=== PATIENT | female | born 1985 | race Caucasian/White ===

== ENCOUNTER 2016-04-14 18:58 | Emergency (ER) | payer SELFPAY ==
[2016-04-14] MEDS ORDERED: Fluconazole 100 MG TAB ONE (19:56)
--- NOTE | 2016-04-14 20:17 | ERRECORD ---
[facility] EMERGENCY RECORD HPI RASH (19:32 WMEI) CHIEF COMPLAINT: Patient presents for evaluation of pruritis, Patient presents for evaluation of rash. HISTORIAN: History provided by patient, X 2 WKS STARTED SMALL SPOT ON CHEST SPREAD TO LOWER EXTR AND BACK. LOCATION: Symptoms are generalized. QUALITY: Rash described as flat, IRREGULAR BORDER SOME WITH ECZEMATOUS CHANGES. TIME COURSE: Gradual onset of symptoms, 2, weeks ago, Symptoms are worsening. ASSOCIATED WITH: No associated fever, No associated pain. EXACERBATED BY: Patient's condition exacerbated by nothing. RELIEVED BY: Patient's condition relieved by nothing. ROS (19:34 WMEI) CONSTITUTIONAL: Historian denies chills, denies fever. EYES: Historian denies eye pain, denies eye discharge. ENT: Historian denies rhinorrhea, denies sore throat. CARDIOVASCULAR: Historian denies chest pain, no radiation. RESPIRATORY: Historian denies cough, denies shortness of breath. GI: Historian denies abdominal pain, denies nausea, denies vomiting. GENITOURINARY FEMALE: Historian denies frequency, denies urgency. MUSCULOSKELETAL: Historian denies joint stiffness, denies joint swelling. SKIN: Historian reports skin changes, reports skin lesions. NUMEROUS DISCRETE LESIONS WITH IRREGULAR BORDERS. NEUROLOGIC: Historian denies mental status changes, denies paresthesias. ALLERGIC/IMMUNOLOGIC: Historian denies eczema, denies environmental allergies. PSYCHIATRIC: Historian denies alcohol abuse, denies anxiety, denies depression, denies drug abuse. PAST MEDICAL HISTORY (19:09 MMAN) MEDICAL HISTORY: Flu vaccine not up to date, Tetanus immunization up to date, Date of immunization: 2009, Pneumococcal vaccine not up to date, Past medical history includes gastrointestinal disease, gallstones. Verified 04/14/2016. FEMALE SURGICAL HISTORY: tubal, left ankle surgery, Surgical history of cholecystectomy 2007, Verified 04/14/2016. PSYCHIATRIC HISTORY: No previous psychiatric history. Verified 04/14/2016. SOCIAL HISTORY: Patient drinks socially, twice a month, Patient denies drug use, Patient currently uses tobacco, smokes cigarettes, daily, Patient smokes 1 pack per day. Verified 04/14/2016. FAMILY HISTORY: Paternal history of diabetes:, Paternal history of malignancy:, Maternal history of cardiac disease. &a-1R&a+25V*p+0X*i6725T*c202B*c15G*c2P*p-0X&a-25V&a+1R Name: Kayleen De Los Santos : 1985 F30 MedRec: [id number] AcctNum: [id number] Prepared: Kinjal Apr 14, 2016 22:55 by Interface Page 1 of 3 pMD [facility] EMERGENCY RECORD KNOWN ALLERGIES traMADol: Severity: Moderate, Source: Patient, - itching and spasms CURRENT MEDICATIONS No recorded medications VITAL SIGNS (19:06 MMAN) VITAL SIGNS: BP: 121/91, Pulse: 97, Resp: 18, Temp: 98.5 (Oral), Pain: 0, O2 sat: 99 on Room Air, Time: 04/14/2016 19:06. PHYSICAL EXAM (19:36 WMEI) CONSTITUTIONAL: Vital signs reviewed, Patient appears non toxic, Patient alert and oriented to person, place and time. HEAD: Head exam included findings of head atraumatic, normocephalic. EYES: Conjunctiva normal, Sclera normal. ENT: Ear exam normal, Nose exam normal, Pharynx exam normal. NECK: Neck exam included findings of normal range of motion, Trachea midline. RESPIRATORY CHEST: Breath sounds clear, Chest exam included findings of chest movement symmetrical. CARDIOVASCULAR: Cardiovascular exam included findings of heart rate regular rate and rhythm, Heart sounds normal. ABDOMEN FEMALE: Abdominal exam included findings of abdomen nontender, Bowel sounds normal. BACK: Back exam normal, Back exam included findings of normal inspection, range of motion normal. UPPER EXTREMITY: Upper extremity exam included findings of inspection normal, Range of motion normal, Motor strength normal. LOWER EXTREMITY: Lower extremity exam included findings of inspection normal, Motor strength normal. NEURO: [place] coma scale 15, Neuro exam findings include patient oriented to person, place and time. SKIN: NUMEROUS IRREGULQAR MACULAR SLIGHTLY SCALY LESIONS CHEST BACK PROXIMAL EXTREMITLOWER EXTR. LYMPHATIC: Lymphatic exam normal. PSYCHIATRIC: Psychiatric exam included findings of patient oriented to person place and time, Normal affect, Judgment normal, Insight normal. MEDICATION ADMINISTRATION SUMMARY Drug Name: fluconazole, Dose Ordered: 300 mg, Route: Oral, Status: Given, Time: 20:00 04/14/2016, Detailed record available in Medication Service section. PROBLEM LIST No recorded problems &a-1R&a+25V*p+0X*l3059R*c202B*c15G*c2P*p-0X&a-25V&a+1R Name: Kayleen De Los Santos : 1985 F30 MedRec: [id number] AcctNum: [id number] Prepared: Kinjal Apr 14, 2016 22:55 by Interface Page 2 of 3 pMD [facility] EMERGENCY RECORD DIAGNOSIS (19:47 WMEI) FINAL: PRIMARY: TINEA VERSICOLOR. PRESCRIPTION (19:46 WMEI) fluconazole: TABLET : 150 mg : ORAL : Quantity: 300 Unit: mg Route: ORAL Schedule: once a week Dispense: 4 Unit: tab(s) May substitute. Refills: No Refills . NOTES: No refills. DISPOSITION PATIENT: Disposition Type: Discharge, Disposition: *Discharge Home. (19:47 WMEI) Patient left the department. (20:04 DAMI) Velez: MMAN=MILAGROS Ramirez Matthew WMEI=DO Canseco William &a-1R&a+25V*p+0X*l4305H*c202B*c15G*c2P*p-0X&a-25V&a+1R Name: Kayleen De Los Santos : 1985 F30 MedRec: [id number] AcctNum: [id number] Prepared: Kinjal Apr 14, 2016 22:55 by Interface Page 3 of 3 pMD MTDD
--- NOTE | 2016-04-14 20:22 | PICIS ---
[facility] EMERGENCY RECORD TRIAGE (MonApr 14, 2016 19:07 MMAN) TRIAGE NOTES: Rash that started 1 week ago to left chest and has spread to torso and lower back. (MonApr 14, 2016 19:07 MMAN) PATIENT: NAME: Kayleen De Los Santos, AGE: 30, GENDER: female, : Sat 1985, TIME OF GREET: MonApr 14, 2016 18:58, PREFERRED LANGUAGE: [place], ETHNICITY: Not or , ECODE BILLING MAP: [facility], SSN: [id number], Zip Code: [address], KG WEIGHT: [phone], PHONE: , , , PERSON ID: [id number], PAYMENT: [employer] Self Pay, PCP: NONE. (MonApr 14, 2016 19:07 MMAN) COMPLAINT: Rash. (MonApr 14, 2016 19:07 MMAN) ADMISSION: URGENCY: 5 Fast Track, ADMISSION SOURCE: Home, TRANSPORT: CAR, BED: TRIAGE. (MonApr 14, 2016 19:07 MMAN) SIRS SCORING: Heart Rate 55-109 (0), Temp range 96.8-101.1 (0), respiratory rate 12-24 (0), Mental Status altered: no (0), Infection or Suspected Infection: No. (19:09 MMAN) TRIAGE SCREENING: Patient denies suicidal ideation, Patient denies presence of domestic violence. (19:09 MMAN) LMP: Last menstrual period: 04/14/2016. (19:09 MMAN) TREATMENTS IN PROGRESS: Medications Given, NONE. (19:09 MMAN) PROVIDERS: TRIAGE NURSE: Matt Ramirez RN. (MonApr 14, 2016 19:07 MMAN) VITAL SIGNS: BP 121/91, Pulse 97, Resp 18, Temp 98.5, (Oral), Pain 0, O2 Sat 99, on Room Air, Time 04/14/2016 19:06. (19:06 MMAN) PREVIOUS VISIT ALLERGIES: traMADol. (MonApr 14, 2016 19:07 MMAN) traMADol. (19:09 MMAN) KNOWN ALLERGIES traMADol: Severity: Moderate, Source: Patient, - itching and spasms CURRENT MEDICATIONS No recorded medications VITAL SIGNS (19:06 MMAN) VITAL SIGNS: BP: 121/91, Pulse: 97, Resp: 18, Temp: 98.5 (Oral), Pain: 0, O2 sat: 99 on Room Air, Time: 04/14/2016 19:06. NURSING ASSESSMENT: SKIN (19:11 MMAN) CONSTITUTIONAL: Patient arrives ambulatory, Gait steady, History obtained from patient, Patient appears comfortable, Patient cooperative, Patient alert, Oriented to person, place and time, Skin warm, Skin dry, Skin normal in color, Mucous membranes pink, Mucous membranes moist, Patient is well-groomed, Patient complains of Rash, Rash that started 1 week ago to left chest and has spread to torso and lower back. SKIN: Skin assessment findings include skin warm, Skin dry, Skin normal in color, Inspection findings include rash, red, macular, itchy, without drainage, &a-1R&a+25V*p+0X*r8762Y*c202B*c15G*c2P*p-0X&a-25V&a+1R Name: Kayleen De Los Santos : 1985 F30 MedRec: [id number] AcctNum: [id number] Prepared: Kinjal Apr 14, 2016 23:01 by Interface Page 1 of 5 pMD [facility] EMERGENCY RECORD to left chest, abdomen, lower back. SAFETY: Side rails up, Cart/Stretcher in lowest position, Family at bedside, Call light within reach, Hospital ID band on. NURSING PROCEDURE: DISCHARGE NOTE (20:04 MMAN) DISCHARGE: Patient discharged to home, ambulating without assistance, family driving, accompanied by //partner, Summary of Care printed/ provided, Transition record given to patient, Discharge instructions given to patient, Simple or moderate discharge teaching performed, Prescriptions given and instructions on side effects given, Name of prescription(s) given: fluconazole, Medication reconciliation form given, Above person(s) verbalized understanding of discharge instructions and follow-up care. BELONGINGS: Belongings and valuables with patient at time of discharge include:, Belongings remain with patient, Valuables remain with patient. SAFETY: Side rails up, Cart/Stretcher in lowest position, Family at bedside, Call light within reach, Hospital ID band on. ORDER DETAILS Order Name: BLOOD GLUCOSE MONITOR, Status: Done, Time: 19:44 04/14/2016, User: AADK, - Ordered for: DO Canseco William, - Entered by: DO Canseco William - [facility] Apr 14, 2016 19:42, - Quantity: 1. MEDICATION ADMINISTRATION SUMMARY Drug Name: fluconazole, Dose Ordered: 300 mg, Route: Oral, Status: Given, Time: 20:00 04/14/2016, Detailed record available in Medication Service section. MEDICATION SERVICE (20:00 [facility]) fluconazole: Order: fluconazole - Dose: 300 mg : Oral Schedule: Now Ordered by: Jethro Canseco DO Entered by: Jethro Canseco DO [facility] Apr 14, 2016 19:47 Documented as given by: Matt Ramirez RN [facility] Apr 14, 2016 20:00 Patient, Medication, Dose, Route and Time verified prior to administration. Amount given: 300 mg, Site: Medication administered P.O., Correct patient, time, route, dose and medication confirmed prior to administration, Patient advised of actions and side-effects prior to administration, Allergies confirmed and medications reviewed prior to administration, Patient in position of comfort, Side rails up, Cart in lowest position, Family at bedside, Call light in reach. HPI RASH (19:32 WMEI) CHIEF COMPLAINT: Patient presents for evaluation of &a-1R&a+25V*p+0X*h8744Q*c202B*c15G*c2P*p-0X&a-25V&a+1R Name: Kayleen De Los Santos : 1985 F30 MedRec: [id number] AcctNum: [id number] Prepared: Kinjal Apr 14, 2016 23:01 by Interface Page 2 of 5 pMD [facility] EMERGENCY RECORD pruritis, Patient presents for evaluation of rash. HISTORIAN: History provided by patient, X 2 WKS STARTED SMALL SPOT ON CHEST SPREAD TO LOWER EXTR AND BACK. LOCATION: Symptoms are generalized. QUALITY: Rash described as flat, IRREGULAR BORDER SOME WITH ECZEMATOUS CHANGES. TIME COURSE: Gradual onset of symptoms, 2, weeks ago, Symptoms are worsening. ASSOCIATED WITH: No associated fever, No associated pain. EXACERBATED BY: Patient's condition exacerbated by nothing. RELIEVED BY: Patient's condition relieved by nothing. ROS (19:34 WMEI) CONSTITUTIONAL: Historian denies chills, denies fever. EYES: Historian denies eye pain, denies eye discharge. ENT: Historian denies rhinorrhea, denies sore throat. CARDIOVASCULAR: Historian denies chest pain, no radiation. RESPIRATORY: Historian denies cough, denies shortness of breath. GI: Historian denies abdominal pain, denies nausea, denies vomiting. GENITOURINARY FEMALE: Historian denies frequency, denies urgency. MUSCULOSKELETAL: Historian denies joint stiffness, denies joint swelling. SKIN: Historian reports skin changes, reports skin lesions. NUMEROUS DISCRETE LESIONS WITH IRREGULAR BORDERS. NEUROLOGIC: Historian denies mental status changes, denies paresthesias. ALLERGIC/IMMUNOLOGIC: Historian denies eczema, denies environmental allergies. PSYCHIATRIC: Historian denies alcohol abuse, denies anxiety, denies depression, denies drug abuse. PAST MEDICAL HISTORY (19:09 MMAN) MEDICAL HISTORY: Flu vaccine not up to date, Tetanus immunization up to date, Date of immunization: 2009, Pneumococcal vaccine not up to date, Past medical history includes gastrointestinal disease, gallstones. Verified 04/14/2016. FEMALE SURGICAL HISTORY: tubal, left ankle surgery, Surgical history of cholecystectomy 2007, Verified 04/14/2016. PSYCHIATRIC HISTORY: No previous psychiatric history. Verified 04/14/2016. SOCIAL HISTORY: Patient drinks socially, twice a month, Patient denies drug use, Patient currently uses tobacco, smokes cigarettes, daily, Patient smokes 1 pack per day. Verified 04/14/2016. FAMILY HISTORY: Paternal history of diabetes:, Paternal history of malignancy:, Maternal history of cardiac disease. PHYSICAL EXAM (19:36 WMEI) &a-1R&a+25V*p+0X*q5675T*c202B*c15G*c2P*p-0X&a-25V&a+1R Name: Kayleen De Los Santos : 1985 F30 MedRec: [id number] AcctNum: [id number] Prepared: [facility] Apr 14, 2016 23:01 by Interface Page 3 of 5 pMD [facility] EMERGENCY RECORD CONSTITUTIONAL: Vital signs reviewed, Patient appears non toxic, Patient alert and oriented to person, place and time. HEAD: Head exam included findings of head atraumatic, normocephalic. EYES: Conjunctiva normal, Sclera normal. ENT: Ear exam normal, Nose exam normal, Pharynx exam normal. NECK: Neck exam included findings of normal range of motion, Trachea midline. RESPIRATORY CHEST: Breath sounds clear, Chest exam included findings of chest movement symmetrical. CARDIOVASCULAR: Cardiovascular exam included findings of heart rate regular rate and rhythm, Heart sounds normal. ABDOMEN FEMALE: Abdominal exam included findings of abdomen nontender, Bowel sounds normal. BACK: Back exam normal, Back exam included findings of normal inspection, range of motion normal. UPPER EXTREMITY: Upper extremity exam included findings of inspection normal, Range of motion normal, Motor strength normal. LOWER EXTREMITY: Lower extremity exam included findings of inspection normal, Motor strength normal. NEURO: [place] coma scale 15, Neuro exam findings include patient oriented to person, place and time. SKIN: NUMEROUS IRREGULQAR MACULAR SLIGHTLY SCALY LESIONS CHEST BACK PROXIMAL EXTREMITLOWER EXTR. LYMPHATIC: Lymphatic exam normal. PSYCHIATRIC: Psychiatric exam included findings of patient oriented to person place and time, Normal affect, Judgment normal, Insight normal. EVENTS TRANSFER: Triage to Emergency Triage. (MonApr 14, 2016 19:07 MMAN) Emergency Triage to Emergency Room -04. (19:08 MMAN) Removed from Emergency Emergency Room -04. (20:04 MMAN) PROBLEM LIST No recorded problems DIAGNOSIS (19:47 WMEI) FINAL: PRIMARY: TINEA VERSICOLOR. DISPOSITION PATIENT: Disposition Type: Discharge, Disposition: *Discharge Home. (19:47 WMEI) Patient left the department. (20:04 MMAN) INSTRUCTION (19:47 WMEI) DISCHARGE: TINEA VERSICOLOR. SPECIAL: Follow-up with your PCP. &a-1R&a+25V*p+0X*m6674K*c202B*c15G*c2P*p-0X&a-25V&a+1R Name: Kayleen De Los Santos : 1985 F30 MedRec: [id number] AcctNum: [id number] Prepared: MonApr 14, 2016 23:01 by Interface Page 4 of 5 pMD [facility] EMERGENCY RECORD PRESCRIPTION (19:46 WMEI) fluconazole: TABLET : 150 mg : ORAL : Quantity: 300 Unit: mg Route: ORAL Schedule: once a week Dispense: 4 Unit: tab(s) May substitute. Refills: No Refills . NOTES: No refills. IMAGING (21:19 AADK) *DISCHARGE INSTRUCTIONS RECEIPT: Image captured from scanner. *SUPPLY CHARGE SHEET: Image captured from scanner. ADMIN (22:49 WMEI) DIGITAL SIGNATURE: DO Canseco William. Velez: AADK=MILAGROS Duffy, Alicia MMAN=MILAGROS Ramirez, Matt WMEI=DO Canseco William &a-1R&a+25V*p+0X*z5340W*c202B*c15G*c2P*p-0X&a-25V&a+1R Name: Kayleen De Los Santos : 1985 F30 MedRec: [id number] AcctNum: [id number] Prepared: Kinjal Apr 14, 2016 23:01 by Interface Page 5 of 5 pMD MTDD
== END 2016-04-14 20:05 | disposition home or self-care (01) ==
LOC: BURERS 18:58
DX: B36.0 Pityriasis versicolor (principal); F17.210 Nicotine dependence, cigarettes, uncomplicated
CPT/HCPCS: 36416; 99283

== ENCOUNTER 2017-03-04 09:34 | Emergency (ER) | payer SELFPAY | END 2017-03-04 10:00 | LOC: BURERS 09:34 | DX: J06.9 Acute upper respiratory infection, unspecified (principal); F17.210 Nicotine dependence, cigarettes, uncomplicated | CPT/HCPCS: 99406 ==

== ENCOUNTER 2017-07-30 01:25 | Emergency (ER) | payer SELFPAY ==
[2017-07-30] MEDS ORDERED: HYDROcodone/Acetaminophen 5/325 mg Tablet ONE (01:59)
== END 2017-07-30 02:19 | disposition home or self-care (01) ==
LOC: BURERS 01:25
DX: G50.0 Trigeminal neuralgia (principal); K03.81 Cracked tooth; F17.210 Nicotine dependence, cigarettes, uncomplicated; Z79.1 Long term (current) use of non-steroidal anti-inflammatories (NSAID)
CPT/HCPCS: 99283

== ENCOUNTER 2018-03-02 10:15 | Emergency (ER) | payer SELFPAY | END 2018-03-02 11:43 | disposition home or self-care (01) | LOC: BURERS 10:15 | DX: L72.3 Sebaceous cyst (principal); F17.210 Nicotine dependence, cigarettes, uncomplicated | CPT/HCPCS: 56405; 87070; 87205 ==

== ENCOUNTER 2018-05-15 14:24 | Emergency (ER) | payer SELFPAY ==
[2018-05-15] MEDS ORDERED: HYDROcodone/Acetaminophen 10/325 mg Tablet ONE (15:02)
[2018-05-15] MEDS ORDERED: AMOXicillin 250 MG CAP ONE (15:02)
== END 2018-05-15 15:08 | disposition home or self-care (01) ==
LOC: BURERS 14:24
DX: K02.9 Dental caries, unspecified (principal); F17.210 Nicotine dependence, cigarettes, uncomplicated
CPT/HCPCS: 99283

== ENCOUNTER 2019-04-28 09:50 | Emergency (ER) | payer SELFPAY ==
[2019-04-28] MEDS ORDERED: HYDROcodone/Acetaminophen 5/325 mg Tablet ONE (10:23)
[2019-04-28] MEDS ORDERED: Ibuprofen 200 MG TAB ONE (10:23)
[2019-04-28] MEDS ORDERED: predniSONE 20 MG TAB ONE (10:23)
== END 2019-04-28 10:44 | disposition home or self-care (01) ==
LOC: BURERS 09:50
DX: M54.5 Low back pain (principal); F17.210 Nicotine dependence, cigarettes, uncomplicated
CPT/HCPCS: 99283; J7512

== ENCOUNTER 2019-07-08 10:16 | Emergency (ER) | payer SELFPAY ==
[2019-07-08] MEDS ORDERED: Cyclobenzaprine 10 MG TAB ONE (10:38)
[2019-07-08] MEDS ORDERED: Ketorolac Tromethamine 60 MG/2 ML VIAL ONE (10:39)
== END 2019-07-08 10:59 | disposition home or self-care (01) ==
LOC: BURERS 10:16
DX: M54.5 Low back pain (principal); F17.210 Nicotine dependence, cigarettes, uncomplicated
CPT/HCPCS: 96372; 99283; J1885

== ENCOUNTER 2019-07-25 09:34 | Emergency (ER) | payer SELFPAY ==
[2019-07-25] MEDS ORDERED: HYDROcodone/Acetaminophen 10/325 mg Tablet ONE (09:49)
[2019-07-25] MEDS ORDERED: Ibuprofen 800 MG TAB ONE (09:50)
--- NOTE | 2019-07-25 15:39 | RAD ---
RIGHT KNEE FOUR VIEWS: 07/25/19 Comparison is made with a 08/19/23 study. No acute fracture was seen. The joint surfaces are smooth. T here may be a small amount of joint fluid. IMPRESSION: No acute bony finding. POS: HOME
== END 2019-07-25 10:22 | disposition home or self-care (01) ==
LOC: BURERS 09:34
DX: S83.004A Unspecified dislocation of right patella, initial encounter (principal); F17.210 Nicotine dependence, cigarettes, uncomplicated; X50.1XXA Overexertion from prolonged static or awkward postures, initial encounter

== ENCOUNTER 2019-10-15 11:29 | Emergency (ER) | payer SELFPAY | END 2019-10-15 12:01 | disposition home or self-care (01) | LOC: BURERS 11:29 | DX: S83.91XA Sprain of unspecified site of right knee, initial encounter (principal); F17.210 Nicotine dependence, cigarettes, uncomplicated; X58.XXXA Exposure to other specified factors, initial encounter | CPT/HCPCS: 99283 ==

== ENCOUNTER 2020-01-17 08:32 | Emergency (ER) | payer SELFPAY ==
[2020-01-17] MEDS ORDERED: Adenosine 6 MG/2 ML VIAL ONE (08:50)
[2020-01-17 09:12] LABS: #Basophils 0.1 thou/uL (0.0-0.2); #Eosinphils 0.2 thou/uL (0.0-0.7); #Lymphocytes 2.3 thou/uL (1.20-3.40); #Monocytes 0.5 thou/uL (0.11-0.59); #Neutrophils 6.4 thou/uL (1.40-6.50); %Basophils 1.1 % (0.0-1.0); %Eosinophils 2.1 % (0.0-10.0); %Lymphocytes 24.4 % (21.0-51.0); %Monocytes 5.4 % (0.0-10.0); Hemoglobin 14.5 g/dL (12.0-16.0); Mean Corpuscular Volume 87.3 fL (78.0-98.0); Mean Platelet Volume 9.5 fL (7.4-10.4); Platelet Count 243 thou/uL (130-400); RBC Distribution Width 12.1 % (11.5-14.5); Red Blood Cell (RBC) Count 5.19 mill/uL (4.20-5.40); White Blood Cell (WBC) Count 9.6 thou/uL (4.8-10.8)
[2020-01-17 09:25] LABS: ALT (SGPT) 30 U/L (8-55); AST (SGOT) 18 U/L (5-34); Albumin 4.1 g/dL (3.5-5.0); Alkaline Phosphatase 77 U/L (40-110); Anion Gap 16 mmol/L (10-20); BUN (Urea Nitrogen) 14 mg/dL (7.0-18.7); Bilirubin, Total 0.8 mg/dL (0.2-1.2); Calc. Creatinine Clearance 0 mL/min (70-130); Calcium 9.2 mg/dL (7.8-10.44); Carbon Dioxide 21 mmol/L (22-29); Chloride 107 mmol/L (98-107); Estimated GFR-MDRD 86; Globulin 2.6 g/dL (2.4-3.5); Glucose 119 mg/dL (70-105); Potassium 3.9 mmol/L (3.5-5.1); Protein, Total 6.7 g/dL (6.0-8.3); Sodium 140 mmol/L (136-145)
--- NOTE | 2020-01-17 17:55 | RAD ---
PORTABLE CHEST: 01/17/20 An AP portable film at 0918 is compared with a 03/10/08 study. The heart is normal in size and the lungs are clear except for some streaking near the cardiac apex. This seems more likely scarring or atelectasis than an acute infiltrate. The right lung is certainly clear. There is no congestion or pleural effusion. The mediastinum appears normal. IMPRESSION: No acute thoracic finding. POS: HOME
== END 2020-01-17 10:48 | disposition home or self-care (01) ==
LOC: BURERS 08:32
DX: I47.1 Supraventricular tachycardia (principal); F17.210 Nicotine dependence, cigarettes, uncomplicated
CPT/HCPCS: 71045; 80053; 84484; 85025; 93005; 96374; J0153

== ENCOUNTER 2021-08-07 16:25 | Emergency (ER) | payer OTHER, SELFPAY | END 2021-08-07 16:55 | disposition home or self-care (01) | LOC: BURERS 16:25 | DX: R60.9 Edema, unspecified (principal); F17.210 Nicotine dependence, cigarettes, uncomplicated | CPT/HCPCS: 99283 ==

== ENCOUNTER 2022-01-15 14:57 | Emergency (ER) | payer OTHER ==
[2022-01-15] MEDS ORDERED: Ibuprofen 800 MG TAB ONE (16:17)
== END 2022-01-15 16:35 | disposition home or self-care (01) ==
LOC: BURERS 14:57
DX: S93.401A Sprain of unspecified ligament of right ankle, initial encounter (principal); I10 Essential (primary) hypertension; F17.210 Nicotine dependence, cigarettes, uncomplicated; X50.1XXA Overexertion from prolonged static or awkward postures, initial encounter

== ENCOUNTER 2022-04-24 12:29 | Emergency (ER) | payer OTHER | END 2022-04-24 13:08 | disposition home or self-care (01) | LOC: BURERS 12:29 | DX: M77.11 Lateral epicondylitis, right elbow (principal); I10 Essential (primary) hypertension; F17.210 Nicotine dependence, cigarettes, uncomplicated | CPT/HCPCS: 99283 ==